=== PATIENT | female | born 1935 | race Caucasian/White ===

== ENCOUNTER 2024-02-06 20:20 | Inpatient (IN) | payer OTHER, MEDICAID ==
[~2024-02-06] VITALS: Ht 162.6 cm; Wt 50.8 kg
[2024-02-06 11:51] VITALS: BP 77/54; PULSE 110; RESP 20; TEMP 35.6396
[2024-02-06] MEDS: SODIUM CHLORIDE 0.9% 1000ML BAG (SEPSIS BOLUS) IV ONE (20:29)
[2024-02-06] MEDS: PIPERACILLIN/TAZO 3.375G/50ML 50 ML IV ONE (20:32)
[2024-02-06 20:43] LABS: BASOPHILS % 0.4 % (0.0-2.0); EOSINOPHILS % 0.2 % (0.0-5.0); HEMATOCRIT. 37.1 % (36.0-48.0); HEMOGLOBIN. 12.6 g/dL (12.0-16.0); LYMPHOCYTES % 9.1 % (20.0-50.0); MEAN CORPUSCULAR HEMOGLOBIN 31.3 pg (28.0-32.0); MEAN CORPUSCULAR HGB CONC 34.1 g/dL (31.0-37.0); MEAN CORPUSCULAR VOLUME 91.8 fL (81.0-99.0); MEAN PLATELET VOLUME 7.2 fl (7.4-10.4); MONOCYTES % 5.1 % (2.0-8.0); NEUTROPHILS % 85.2 % (40.0-76.0); PLATELET 244 x1000/uL (130-400); RED BLOOD CELL COUNT 4.04 mill/uL (4.2-5.4); RED CELL DISTRIBUTION WIDTH 13.6 % (11.6-14.6); WHITE BLOOD COUNT 20.5 x1000/uL (4.5-11.0)
[2024-02-06 20:50] LABS: CHLORIDE 97 mEq/L (98-107); POTASSIUM 4.5 mEq/L (3.5-5.1); SODIUM 129 mEq/L (136-145)
[2024-02-06 20:51] LABS: CALCIUM 10.5 mg/dL (8.7-10.4); CARBON DIOXIDE 21 mEq/L (21-32)
[2024-02-06 20:56] LABS: CREATININE 1.1 mg/dL (0.6-1.0); GLUCOSE 289 mg/dL (70-105); UREA NITROGEN BLOOD 23 mg/dL (9-23)
[2024-02-06 20:58] LABS: ALANINE AMINOTRANSFERASE 43 IU/L (10-49); ALBUMIN 4.5 g/dL (3.2-4.8); ASPARTATE AMINOTRANSFERASE 49 IU/L (<34); BILIRUBIN DIRECT 0.4 mg/dL (<=3.0); CREATINE KINASE 241 IU/L (34-145)
[2024-02-06 20:59] LABS: BILIRUBIN TOTAL 1.3 mg/dL (0.1-1.0); PROTEIN TOTAL 7.8 g/dL (6.0-8.3)
[2024-02-06 21:08] LABS: LACTIC ACID 5.8 mmol/L (0.4-2.0); TROPONIN I HIGH SENSITIVITY 3782 ng/L (3.0-34)
[2024-02-06] MEDS: VANCOMYCIN 1G PREMIX 200 ML IV ONE (21:12)
[2024-02-06 21:43] LABS: PROTHROMBIN TIME 11.5 sec (9.6-11.0)
[2024-02-06] MEDS: SODIUM CHLORIDE 0.9% 500 ML IV ONE ×2 (22:05→22:49)
[2024-02-06] MEDS: NOREPINEPHRINE 8MG/250ML PMX 250 ML IV ONE (22:12)
[2024-02-06] MEDS: HEPARIN 5000 UNITS/ML VIAL IV SCH (22:15)
[2024-02-06] MEDS ORDERED: HEPARIN 5000 UNITS/ML VIAL IV PRN ×4 (22:15→22:45)
[2024-02-06] MEDS ORDERED: HEPARIN 25,000 UNITS PREMIX 250 ML IV PRN (22:15)
[2024-02-06] MEDS: ONDANSETRON HCL 4MG/2ML INJ IV ONE (22:31)
[2024-02-06 22:40] VITALS: RESP 25
[2024-02-06 22:53] LABS: BG BASE EXCESS -16.5 mmol/L (-2.0-3.0); BG CARBOXYHEMOGLOBIN 0.3 % (0.5-1.5); BG DEOXYHEMOGLOBIN 2.4 % (0.0-5.0); BG FRACTION INSPIRED OXYGEN 100; BG HCO3 ACT 10.5 mmol/L (21.0-28.0); BG OXYGEN SATURATION 97.6 % (94.0-98.0); BG OXYHEMOGLOBIN 97.3 % (94.0-98.0); BG PCO2 29.3 mmHg (32.0-45.0); BG PH 7.174 (7.350-7.450); BG PO2 119.4 mmHg (83.0-108.0); BG SAMPLE SITE LEFT RADIAL; BG TOTAL HEMOGLOBIN 11.9 g/dL (12.0-16.0); BG VENT MODE MASK - BIPAP
[2024-02-06] MEDS: HEPARIN 60 UNITS/KG BOLUS IV NR (23:06)
[2024-02-06] MEDS: HEPARIN 25,000 UNITS PREMIX 250 ML IV SCH (23:12)
[2024-02-07] VITALS (71 sets, daily range): BP systolic 38–125; BP diastolic 13–85; PULSE 54–124; RESP 12–50; TEMP 36.3918–37.55856; O2SAT 37–100
[2024-02-07 00:16] LABS: TROPONIN I HIGH SENSITIVITY 5881 ng/L (3.0-34)
[2024-02-07 00:49] LABS: BG CARBOXYHEMOGLOBIN 0.3 % (0.5-1.5); BG DEOXYHEMOGLOBIN 0.3 % (0.0-5.0); BG FRACTION INSPIRED OXYGEN 80; BG HCO3 ACT 13.7 mmol/L (21.0-28.0); BG METHEMOGLOBIN 0.1 % (0.5-1.5); BG OXYGEN SATURATION 99.7 % (94.0-98.0); BG OXYHEMOGLOBIN 99.3 % (94.0-98.0); BG PCO2 30.8 mmHg (32.0-45.0); BG PH 7.267 (7.350-7.450); BG PO2 281.8 mmHg (83.0-108.0); BG SAMPLE SITE RIGHT RADIAL; BG TOTAL HEMOGLOBIN 12.2 g/dL (12.0-16.0); BG VENT MODE MASK - BIPAP
[2024-02-07] MEDS ORDERED: ACETAMINOPHEN 325MG TABLET PO PRN (01:30)
[2024-02-07] MEDS ORDERED: DOCUSATE SODIUM 100MG CAPSULE PO PRN (01:30)
[2024-02-07] MEDS ORDERED: ONDANSETRON HCL 4MG/2ML INJ IV PRN (01:30)
[2024-02-07] MEDS ORDERED: GUAIFENESIN 200MG/10ML SUGAR FREE UDC PO PRN (01:30)
[2024-02-07] MEDS ORDERED: DIPHENHYDRAMINE 50MG/ML VIAL IV PRN (01:30)
[2024-02-07] MEDS ORDERED: IPRATROPIUM/ALBUTEROL 0.5-3(2.5)MG/3ML NEB HHN PRN (01:30)
[2024-02-07] MEDS ORDERED: MAGNESIUM/ALUMINUM HYDROXIDE/SIMETHICONE 30ML UDC PO PRN (01:30)
[2024-02-07] MEDS: SODIUM CHLORIDE 0.9% 500 ML IV NR (01:37)
[2024-02-07] MEDS: ACETAMINOPHEN 325MG TABLET PO PRN (02:05)
[2024-02-07] MEDS ORDERED: DEXTROSE 50% WATER 50ML SYRINGE IV PRN (02:15)
[2024-02-07] MEDS: SODIUM CHLORIDE 0.9% 1,000 ML IV SCH (02:36)
[2024-02-07] MEDS ORDERED: IOHEXOL-350 100 ML BOTTLE ONE (03:53)
[2024-02-07] MEDS: NITROGLYCERIN 0.4MG TABLET SL SL PRN (05:14)
[2024-02-07] MEDS: PIPERACILLIN/TAZO 3.375G/50ML 50 ML IV SCH (05:14)
[2024-02-07] MEDS: NOREPINEPHRINE 8MG/250ML PMX 250 ML IV PRN (05:41)
[2024-02-07] MEDS ORDERED: HEPARIN BOLUS PRN aPTT <30 IV (06:00)
[2024-02-07] MEDS: BLOOD SUGAR DIAGNOSTIC STRIP TEST SCH (06:00)
[2024-02-07] MEDS ORDERED: HEPARIN BOLUS PRN aPTT 30-44 IV (06:00)
[2024-02-07 06:07] LABS: CALCIUM 8.9 mg/dL (8.7-10.4)
[2024-02-07 06:10] LABS: CREATINE KINASE MB FRACTION 70.9 ng/mL (0.5-3.6); HEMATOCRIT. 36.6 % (36.0-48.0); HEMOGLOBIN. 11.8 g/dL (12.0-16.0); MEAN CORPUSCULAR HEMOGLOBIN 31.3 pg (28.0-32.0); MEAN CORPUSCULAR HGB CONC 32.3 g/dL (31.0-37.0); MEAN CORPUSCULAR VOLUME 96.8 fL (81.0-99.0); MEAN PLATELET VOLUME 7.6 fl (7.4-10.4); PLATELET 264 x1000/uL (130-400); RED BLOOD CELL COUNT 3.78 mill/uL (4.2-5.4); RED CELL DISTRIBUTION WIDTH 14.3 % (11.6-14.6); WHITE BLOOD COUNT 20.3 x1000/uL (4.5-11.0)
[2024-02-07 06:11] LABS: CREATININE 1.1 mg/dL (0.6-1.0)
[2024-02-07 06:14] LABS: T4 FREE 1.31 ng/dL (0.89-1.76)
[2024-02-07 06:15] LABS: THYROID STIMULATING HORMONE 1.36 uIU/mL (0.55-4.78)
[2024-02-07] MEDS: INSULIN GLARGINE 100 UNITS/ML SUBCUT SCH (06:23)
[2024-02-07] MEDS: INSULIN LISPRO 100 UNITS/ML SUBCUT SCH ×2 (06:24→06:31)
[2024-02-07 06:43] LABS: DIFFERENTIAL COMMENT 1
[2024-02-07 08:32] LABS: BG CARBOXYHEMOGLOBIN 0.3 % (0.5-1.5); BG DEOXYHEMOGLOBIN 3.2 % (0.0-5.0); BG FRACTION INSPIRED OXYGEN 44; BG HCO3 ACT 11.9 mmol/L (21.0-28.0); BG METHEMOGLOBIN 0.3 % (0.5-1.5); BG OXYGEN SATURATION 96.8 % (94.0-98.0); BG OXYHEMOGLOBIN 96.2 % (94.0-98.0); BG PCO2 25.3 mmHg (32.0-45.0); BG PH 7.291 (7.350-7.450); BG PO2 93.2 mmHg (83.0-108.0); BG SAMPLE SITE RIGHT BRACHIAL; BG TOTAL HEMOGLOBIN 12.1 g/dL (12.0-16.0); BG VENT MODE NASAL CANNULA
[2024-02-07] MEDS: IPRATROPIUM/ALBUTEROL 0.5-3(2.5)MG/3ML NEB HHN SCH (09:15)
[2024-02-07] MEDS: SODIUM BICARBONATE 8.4% 50MEQ/50ML SYR IV NR (09:19)
[2024-02-07] MEDS: ASPIRIN 81MG EC TABLET PO SCH (09:20)
[2024-02-07] MEDS: PANTOPRAZOLE SODIUM 40 MG/VIAL IV SCH (09:20)
[2024-02-07] MEDS: LACTATED RINGERS 1,000 ML IV SCH (09:20)
[2024-02-07 10:20] LABS: LACTIC ACID 4.2 mmol/L (0.4-2.0)
[2024-02-07] MEDS ORDERED: LACTATED RINGERS 1,000 ML IV SCH (10:30)
[2024-02-07] MEDS: ALBUMIN HUMAN 25GM/500ML (5%) IV NR (11:45)
[2024-02-07 13:36] LABS: CLARITY URINE CLEAR (CLEAR); COLOR URINE DARK YELLOW (YELLOW); GLUCOSE URINE 3+ (NEGATIVE); KETONES URINE TRACE (NEGATIVE); LEUKOCYTE ESTERASE URINE NEGATIVE (NEGATIVE); NITRITE URINE NEGATIVE (NEGATIVE); OCCULT BLOOD URINE NEGATIVE (NEGATIVE); PH URINE 5.5 (4.5-8.0); PROTEIN URINE 1+ (NEGATIVE); SPECIFIC GRAVITY URINE 1.065 (1.005-1.030); UROBILINOGEN URINE 0.2 E.U./dL (0.2-1.0)
[2024-02-07 13:53] LABS: BACTERIA URINE FEW; RBC URINE 0-2 /hpf (0-2); SQUAMOUS EPITHELIAL CELL URINE RARE /lpf (RARE/1+); YEAST URINE NONE SEEN
[2024-02-07] MEDS: VANCOMYCIN 750MG/150ML (BAXTER) IV SCH (13:57)
[2024-02-07 13:58] LABS: *AMPHETAMINES SCREEN URINE NEGATIVE (NEGATIVE); *BARBITURATES SCREEN URINE NEGATIVE (NEGATIVE); *BENZODIAZEPINES SCREEN URINE NEGATIVE (NEGATIVE); *COCAINE SCREEN URINE NEGATIVE (NEGATIVE); CANNABINOID URINE SCREEN NEGATIVE (NEGATIVE); ECSTASY MDMA SCREEN URINE NEGATIVE (NEGATIVE); METHADONE URINE SCREEN NEGATIVE (NEGATIVE); OPIATES URINE SCREEN NEGATIVE (NEGATIVE); PHENCYCLIDINE URINE SCREEN NEGATIVE (NEGATIVE)
[2024-02-07 15:03] LABS: HEPATITIS B SURFACE ANTIGEN NEGATIVE (Negative)
[2024-02-07 15:24] LABS: HEPATITIS C AB NON REACTIVE (Neg) (Negative)
[2024-02-07] MEDS: PHENYLEPHRINE 50MG/250ML PMX 250 ML IV PRN (15:45)
[2024-02-07 16:42] LABS: CREATINE KINASE MB FRACTION 83.9 ng/mL (0.5-3.6)
[2024-02-07] MEDS ORDERED: FUROSEMIDE 40MG/4ML VIAL IV NR (19:45)
[2024-02-07] MEDS ORDERED: BUDESONIDE 0.5MG/2ML NEB HHN NR (19:50)
[2024-02-07] MEDS: METHYLPREDNISOLONE SOD SUCC 125MG/2ML (ACT-O-VIAL) IV SCH (19:51)
[2024-02-07] MEDS: FUROSEMIDE 100MG/10ML VIAL IV NR (19:52)
[2024-02-07] MEDS: MORPHINE SULFATE 2 MG/ML INJ (NOT FOR IM USE) IV NR (20:14)
[2024-02-07 20:19] LABS: BG BASE EXCESS -11.5 mmol/L (-2.0-3.0); BG CARBOXYHEMOGLOBIN 0.3 % (0.5-1.5); BG DEOXYHEMOGLOBIN 0.8 % (0.0-5.0); BG FRACTION INSPIRED OXYGEN 100; BG HCO3 ACT 13.5 mmol/L (21.0-28.0); BG METHEMOGLOBIN 0.3 % (0.5-1.5); BG OXYGEN SATURATION 99.2 % (94.0-98.0); BG OXYHEMOGLOBIN 98.6 % (94.0-98.0); BG PCO2 27.8 mmHg (32.0-45.0); BG PH 7.303 (7.350-7.450); BG PO2 223.6 mmHg (83.0-108.0); BG SAMPLE SITE RIGHT RADIAL; BG TOTAL HEMOGLOBIN 11.4 g/dL (12.0-16.0); BG VENT MODE MASK - BIPAP
[2024-02-07] MEDS: IPRATROPIUM/ALBUTEROL 0.5-3(2.5)MG/3ML NEB HHN NR (20:37)
[2024-02-07] MEDS ORDERED: MORPHINE SULFATE 2 MG/ML INJ (NOT FOR IM USE) IV PRN (21:00)
[2024-02-07] MEDS: METHYLPREDNISOLONE SOD SUCC 125MG/2ML (ACT-O-VIAL) IV NR (21:08)
[2024-02-07] MEDS: AMIODARONE 150MG/100ML 100 ML IV NR (21:09)
[2024-02-07] MEDS: ATORVASTATIN CALCIUM 40MG TABLET PO SCH (21:16)
[2024-02-07] MEDS ORDERED: NALOXONE HCL 0.4MG/ML VIAL IV PRN (21:30)
[2024-02-07 21:44] LABS: CHLORIDE 107 mEq/L (98-107); SODIUM 136 mEq/L (136-145)
[2024-02-07 21:45] LABS: CARBON DIOXIDE 14 mEq/L (21-32)
[2024-02-07 21:46] LABS: CALCIUM 8.3 mg/dL (8.7-10.4)
[2024-02-07 21:50] LABS: GLUCOSE 282 mg/dL (70-105)
[2024-02-07 21:51] LABS: UREA NITROGEN BLOOD 29 mg/dL (9-23)
[2024-02-07 21:52] LABS: ALANINE AMINOTRANSFERASE 951 IU/L (10-49); ALBUMIN 4.1 g/dL (3.2-4.8); ASPARTATE AMINOTRANSFERASE 896 IU/L (<34)
[2024-02-07 21:53] LABS: BILIRUBIN TOTAL 1.3 mg/dL (0.1-1.0); PROTEIN TOTAL 6.9 g/dL (6.0-8.3)
[2024-02-07 21:54] LABS: CREATININE 1.6 mg/dL (0.6-1.0)
[2024-02-07 21:55] LABS: PLATELET ESTIMATE NORMAL
[2024-02-07 22:28] LABS: BG BASE EXCESS -6.2 mmol/L (-2.0-3.0); BG CARBOXYHEMOGLOBIN 0.3 % (0.5-1.5); BG FRACTION INSPIRED OXYGEN 100; BG HCO3 ACT 21.7 mmol/L (21.0-28.0); BG METHEMOGLOBIN 0.3 % (0.5-1.5); BG OXYHEMOGLOBIN 95.4 % (94.0-98.0); BG PCO2 55.1 mmHg (32.0-45.0); BG PH 7.213 (7.350-7.450); BG PO2 101.5 mmHg (83.0-108.0); BG SAMPLE SITE RIGHT RADIAL; BG TOTAL HEMOGLOBIN 9.8 g/dL (12.0-16.0); BG VENT MODE VENT - AC
[2024-02-07] MEDS: SODIUM BICARBONATE 150 MEQ in SODIUM CHLORIDE 0.45% 850 ML IV SCH (22:37)
[2024-02-07] MEDS: VASOPRESSIN 20 UNIT in SODIUM CHLORIDE 0.9% 99 ML IV PRN (22:37)
[2024-02-07] MEDS: DOPAMINE 400MG/250ML PREMIX 250 ML IV PRN (22:56)
== END 2024-02-08 02:25 | DRG 871 ==
LOC: ER 20:20 → MICUSO 22:10 → EDBEDREQSVC 22:14 → EDBEDREQ 22:14 → EDBEDREQTM 22:14
PROVIDERS: ADMIT Hospitalist; ATTEND Hospitalist
PROC: 5A09357 Assistance with Respiratory Ventilation, Less than 24 Consecutive Hours, Continuous Positive Airway Pressure (ICD-10-PCS; principal; 2024-02-06)
PROC: 5A09357 Assistance with Respiratory Ventilation, Less than 24 Consecutive Hours, Continuous Positive Airway Pressure (ICD-10-PCS; 2024-02-07)
PROC: 5A1935Z Respiratory Ventilation, Less than 24 Consecutive Hours (ICD-10-PCS; 2024-02-07)
PROC: 0BH17EZ Insertion of Endotracheal Airway into Trachea, Via Natural or Artificial Opening (ICD-10-PCS; 2024-02-07)
PROC: 5A12012 Performance of Cardiac Output, Single, Manual (ICD-10-PCS; 2024-02-08)
PROC: 02HV33Z Insertion of Infusion Device into Superior Vena Cava, Percutaneous Approach (ICD-10-PCS; 2024-02-08)
PROC: B548ZZA Ultrasonography of Superior Vena Cava, Guidance (ICD-10-PCS; 2024-02-08)
PROC: 5A12012 Performance of Cardiac Output, Single, Manual (ICD-10-PCS; 2024-02-08)
DX: A41.9 Sepsis, unspecified organism (principal); I21.4 Non-ST elevation (NSTEMI) myocardial infarction; J18.9 Pneumonia, unspecified organism; J96.01 Acute respiratory failure with hypoxia; R65.21 Severe sepsis with septic shock; E87.1 Hypo-osmolality and hyponatremia; E87.29 Other acidosis; N17.9 Acute kidney failure, unspecified; Z20.822 Contact with and (suspected) exposure to COVID-19; R57.0 Cardiogenic shock; E11.65 Type 2 diabetes mellitus with hyperglycemia; I46.9 Cardiac arrest, cause unspecified; E78.00 Pure hypercholesterolemia, unspecified; I10 Essential (primary) hypertension; Z79.82 Long term (current) use of aspirin; Z90.710 Acquired absence of both cervix and uterus
CPT/HCPCS: 36415; 36600; 71045; 71275; 73080; 74174; 80048; 80053; 80061; 80076; 80305; 81003; 82010; 82375; 82550; 82553; 82805; 82962; 83036; 83605; 83735; 83880; 84145; 84439; 84443; 84481; 84484; 85025; 86705; 87077; 87340; 87426; 93005; 93880; 94640; 94660; 99285; J0282; J1265; J1644; J1815; J1940; J2270; J2405; J2470; J2543; J2919; J3370; J3490; J7030; J7040; J7120; P9041; Q9967